=== PATIENT | female | born 1965 | race Caucasian/White ===

== ENCOUNTER 2019-03-12 19:30 | Emergency (ER) | payer MEDICARE, MEDICAID ==
--- NOTE | 2019-03-12 19:57 | ED ---
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 No pain. Only has numbness in her right shinto. No other numbness. No headache currently. No other neuro sx. The patient rates the pain 0/10 in severity. Symptoms aggravated by nothing. Symptoms alleviated by nothing. Hx chronic back pain. States that 1 week ago, started and completed morphine trial with no issues. No hx seizures, CVA, TIA. Hx migraines. No hx diabetes or HTN. - History of Current Complaint Chief Complaint: EDNeurologicalDeficit Stated Complaint: FACIAL NUMBNESS/TINGLING PER PT Hx Obtained From: Patient Onset/Duration: Started hours ago, Still Present Timing: Constant Current Severity: None Pain Intensity: 0 Pain Scale Used: 0-10 Numeric Aggravating: Nothing Alleviating: Nothing Associated Signs and Symptoms: Negative: Headache - Allergy/Home Medications Allergies/Adverse Reactions: Allergies Allergy/AdvReac Type Severity Reaction Status Date / Time No Known Allergies Allergy Verified 03/12/19 19:34 Home Medications: Home Medications Citalopram TAB* [CeleXA TAB*] 40 mg PO DAILY 03/12/19 [History Confirmed ] Famotidine TAB 40 MG(NF) [Pepcid TAB 40 MG(NF)] 40 mg PO DAILY 03/12/19 [ History Confirmed 03/12/19] Levothyroxine TAB* [Synthroid TAB*] 100 mcg PO DAILY 03/12/19 [History Confirmed 03/12/19] Polyethylene Glycol 3350* [Miralax*] 17 - 34 gm PO DAILY PRN 03/12/19 [History Confirmed 03/12/19] Tiotropium Melvin [Spiriva Respimat] 8 gm INH DAILY 03/12/19 [History Confirmed 03/12/19] Varenicline (NF) [Chantix 1 MG TAB (NF)] 1 mg PO BID 03/12/19 [History Confirmed 03/12/19] oxyCODONE TAB* [Roxycodone TAB 5 mg*] 5 mg PO Q8H PRN MDD 15 mg 03/12/19 [ History Confirmed 03/12/19] PMH/Surg Hx/FS Hx/Imm Hx Endocrine/Hematology History: Reports: Hx Thyroid Disease - hypo Denies: Hx Diabetes Cardiovascular History: Denies: Hx Hypertension Neurological History: Reports: Hx Migraine Denies: Hx CVA, Hx Seizures, Hx Transient Ischemic Attacks (TIA) - Surgical History Surgery Procedure, Year, and Place: 3 back surgeries. hysterectomy. cholecystectomy. breast augmentation Infectious Disease History: No Infectious Disease History: Denies: Traveled Outside the [place] in Last 30 Days - Family History Known Family History: Positive: Hypertension, Diabetes Negative: Cardiac Disease Review of Systems Negative: Fever Positive: Numbness - right lateral eyebrow and right shinto. Negative: Headache All Other Systems Reviewed And Are Negative: Yes Physical Exam - Summary Physical Exam Summary: Appearance: Well-appearing, Well-nourished, lying in bed comfortably Skin: Warm, dry, no obvious rash Eyes: sclera anicteric, no conjunctival pallor ENT: mucous membranes moist, pharynx appears normal Neck: Supple, nontender Respiratory: Clear to auscultation, no signs of respiratory distress Cardiovascular: Normal S1, S2. No murmurs. Normal distal pulses in tibial and radial bilaterally. Abdomen: Soft, nontender, normal active bowel sounds present Musculoskeletal: Normal, Strength/ROM Intact Neurological: A&Ox3, awake and alert, mentation is normal, speech is fluent and appropriate. There is a very focal, tightly contrived area of numbness to light touch involving the right lateral eyebrow area extending into the right shinto area. The rest of forehead and both cheeks are spared. Psychiatric: affect is normal, does not appear anxious or depressed GCS: 15 Triage Information Reviewed: Yes Vital Signs On Initial Exam: Initial Vitals Temp Pulse Resp BP Pulse Ox 96.7 F 109 16 145/98 97 03/12/19 19:31 03/12/19 19:31 03/12/19 19:31 03/12/19 19:31 03/12/19 19:31 Vital Signs Reviewed: Yes Procedures - Sedation Patient Received Moderate/Deep Sedation with Procedure: No Diagnostics - Vital Signs Vital Signs Temp Pulse Resp BP Pulse Ox 03/12/19 19:31 96.7 F 109 16 145/98 97 - Laboratory Result Diagrams: 03/12/19 21:16 03/12/19 21:16 Lab Statement: Any lab studies that have been ordered have been reviewed, and results considered in the medical decision making process. - CT Brain CT Interpretation Completed By: Radiologist Summary of CT Findings: No CT signs of hemorrhage or acute infarct. MRI brain with diffusion weighted imaging is more accurate than CT for detection of acute infarct. ED physician has reviewed this report. - EKG 2147 Cardiac Rate: NL - 79 BPM EKG Rhythm: Sinus Rhythm Summary of EKG Findings: NSR at 79 BPM, P waves, QRS complex, and T waves are within normal limits, T waves and intervals are normal, no ischemic changes. This is a normal EKG. Re-Evaluation - Re-Evaluation First Eval Re-Evaluation Time: 21:55 Course/Dx - Course Course Of Treatment: 53 year old F complains of facial numbness located at her right lateral eyebrow and right shinto starting at 16:30 today while sitting in parking lot. No other neuro sx. No hx seizures, CVA, TIA. Upon exam, patient has a very focal, tightly contrived area of numbness to light touch involving the right lateral eyebrow area extending into the right shinto area. The rest of forehead and both cheeks are spared. GCS 15. Bloodwork results with no significant abnormalities except for WBC 11.1, RBC 5.11, absolute neuts 8.0, absolute monos 1.0, potassium 2.7, chloride 96, creatinine 0.99, BUN/creatinine 20.2, glucose 107, alkaline phosphatase 130, globulin 4.2. An EKG shows NSR at 79 BPM, P waves, QRS complex, and T waves are within normal limits, T waves and intervals are normal, no ischemic changes. This is a normal EKG. CT Brain shows , per radiologist: No CT signs of hemorrhage or acute infarct. MRI brain with diffusion weighted imaging is more accurate than CT for detection of acute infarct. In the ED course, the patient was given potassium chloride PO. Patient will be discharged home with follow up from neurology or primary care provider if her sx don't improve over the next week or two. She was advised to have her potassium level rechecked in the next week. Patient was instructed to return to Emergency Department for new or worsening symptoms. Patient understands and is agreeable to this plan. - Diagnoses Provider Diagnoses: Facial paresthesia Discharge ED - Sign-Out/Discharge Documenting (check all that apply): Patient Departure - Discharge - Discharge Plan Condition: Good Patient Education Materials: Hypokalemia (ED), Peripheral Neuropathy (ED), Paresthesia (ED) Referrals: Bobby Bean DO [Primary Care Provider] - Oracio Teague MD [Medical Doctor] - Additional Instructions: If your symptoms don't improve over the next week or two you should see the neurologist or your primary doctor for followup as you may need further workup. The potassium level should also be rechecked in the next week or so. - Attestation Statements Document Initiated by Scribe: Yes Documenting Scribe: Cathryn Whyte Provider For Whom Scribe is Documenting (Include Credential): Ramin Cash MD Scribe Attestation: I, Cathryn Whyte, scribed for Ramin Cash MD on 03/12/19 at 5099.
[2019-03-12 21:23] LABS: ABS Basophils 0.1 10^3/ul (0-0.2); ABS Eosinophils 0.1 10^3/ul (0-0.6); ABS Lymphocytes 1.9 10^3/ul (1.0-4.8); Eosinophil % 0.9 %; Hematocrit 42 % (35-47); Hemoglobin 14.4 g/dL (12.0-16.0); Mean Corpuscular HGB Conc 34 g/dL (31-36); Mean Corpuscular Hemoglobin 28 pg (27-31); Mean Corpuscular Volume 82 fL (80-97); Platelet Count 312 10^3/uL (150-450); Red Blood Count 5.11 10^6 /uL (3.70-4.87); Red Cell Distribution Width 14 % (10-15); White Blood Count 11.1 10^3/uL (3.5-10.8)
[2019-03-12 21:31] LABS: INR 1.07 (0.82-1.09)
[2019-03-12 21:39] LABS: Albumin 4.5 g/dL (3.2-5.2); Albumin/Globulin Ratio 1.1 (1-3); BUN/Creatinine Ratio 20.2 (8-20); C Reactive Protein 3.38 mg/L (<8.01); Calcium 9.7 mg/dL (8.6-10.3); EGFR African American 70.5 (>60); EGFR Non-African American 58.2 (>60); Globulin 4.2 g/dL (2-4); Total Bilirubin 0.5 mg/dL (0.2-1.0); Total Protein 8.7 g/dL (6.4-8.9)
[2019-03-12 21:44] LABS: Potassium 2.7 mmol/L (3.5-5.0)
[2019-03-12] MEDS ORDERED: Potassium Chlor TAB* 20 MEQ TAB.ER PO ONE (21:45)
[2019-03-12 22:22] LABS: Erythrocyte Sed Rate 13 mm/Hr (0-29)
[2019-03-12 22:46] VITALS: BP 136/78
== END 2019-03-12 22:25 | disposition home or self-care (01) ==
LOC: ED 19:30
DX: R20.2 Paresthesia of skin (principal); R20.0 Anesthesia of skin; Z79.899 Other long term (current) drug therapy; E03.9 Hypothyroidism, unspecified
CPT/HCPCS: 36415; 70450; 80053; 85025; 85610; 85652; 86140; 86618; 93005; 99283; A9270-GY